=== PATIENT | male | born 1950 | race Caucasian/White ===

== ENCOUNTER 2017-12-22 11:52 | Inpatient (IN) | payer OTHER ==
[2017-12-22] VITALS (32 sets, daily range): BP systolic 78–164; BP diastolic 38–89
[~2017-12-22] VITALS: Ht 177.8 cm; Wt 126.0 kg
[2017-12-22] MEDS ORDERED: MORPHINE SULF INJ 2 MG/ML SYRINGE 1ML IV ONE (12:00)
[2017-12-22] MEDS ORDERED: HEPARIN SODIUM (PORCINE) 5000 UNITS/ML 1ML VIAL ONE (12:00)
[2017-12-22] MEDS ORDERED: HEPARIN SODIUM (PORCINE) 5000 UNITS/ML 1ML VIAL IV ONE ×2 (12:15→13:00)
[2017-12-22] MEDS ORDERED: LIDOCAINE 2%HCL (LOCAL ANESTH.) INJ 20ML MDV ONE (12:21)
[2017-12-22] MEDS ORDERED: IOHEXOL 350 MG/ML 100ML IJ ONE (12:21)
[2017-12-22] MEDS ORDERED: LABETALOL HCL 5 MG/ML ML 20ML VIAL IV ONE ×2 (12:24→12:30)
[2017-12-22 12:37] LABS: Basophils # (auto) 0.1 uL; Basophils % (auto) 0.8 % (0.0-2.0); Eosinophils # (auto) 0.2 uL; Eosinophils % (auto) 2.1 % (0.0-7.0); Hematocrit 45.6 % (41.0-53.0); Hemoglobin 15.5 g/dL (13.5-17.5); Lymphocytes # (auto) 1.6 uL; Lymphocytes % (auto) 17.4 % (10.0-50.0); Mean Corpuscular Hemoglobin 32.4 pg (28.0-32.0); Mean Corpuscular Hgb Conc. 34.1 g/dL (32.0-36.0); Mean Corpuscular Volume 95.3 fL (80.0-100.0); Monocytes # (auto) 0.6 uL; Monocytes % (auto) 6.7 % (0.0-12.0); Neutrophils # (auto) 6.6 uL; Platelet Count (auto) 213 10^3/uL (140-450); Red Blood Cells 4.78 10^6/uL (4.5-5.90); Red Cell Distribution Width 13.5 % (11.8-14.3)
[2017-12-22] MEDS ORDERED: fentaNYL CITRATE 100 MCG/2 ML VL ONE (12:39)
[2017-12-22] MEDS ORDERED: SODIUM CHL 0.9% 50 ML ONE (12:39)
[2017-12-22] MEDS ORDERED: MIDAZOLAM HCL 1MG/1ML-2 ML VIAL ONE (12:39)
[2017-12-22] MEDS ORDERED: ANGIOMAX 250 MG VIAL IV ONE (12:39)
[2017-12-22] MEDS ORDERED: EPTIFIBATIDE INJ (2MG/ML) 10ML VIAL IV ONE (12:40)
[2017-12-22 12:42] LABS: INR 1.07 (0.9-1.15); Partial Thromboplastin Time 52.7 sec (23.78-33.04); Prothrombin Time 11.4 sec (9.27-12.13)
[2017-12-22 12:47] LABS: Albumin 3.9 g/dL (3.4-5.0); BUN/Creatinine Ratio 13.4; Magnesium 1.6 mg/dL (1.6-2.6); Potassium 3.9 mmol/L (3.5-5.1)
[2017-12-22 12:53] LABS: Bilirubin, Total 0.7 mg/dL (0.2-1.0); Total Protein 7.8 g/dL (6.4-8.2)
[2017-12-22] MEDS ORDERED: HEPARIN DRIP/D5W 100UNITS/ML 250 ML IV SCH ×2 (12:56→13:15)
[2017-12-22] MEDS ORDERED: SODIUM CHLORIDE 0.9% 1,000 ML IV SCH (13:29)
[2017-12-22] MEDS ORDERED: DEXTROSE (50%) 50ML SYRG IV PRN (13:30)
[2017-12-22] MEDS ORDERED: NITROGLYCERIN 0.4 MG SL TAB SL PRN (13:30)
[2017-12-22] MEDS ORDERED: MORPHINE SULFATE 8mg/ml INJ SDV IV PRN ×2 (13:30→14:45)
[2017-12-22] MEDS: HEPARIN DRIP/D5W 100UNITS/ML 250 ML IV SCH (14:00)
[2017-12-22] MEDS: SODIUM CHLOR 0.9% PF (SALINE LOCK) 10ML VIAL/SYR IV SCH ×2 (14:00→22:28)
[2017-12-22] MEDS ORDERED: ZOLPIDEM TARTRATE 5 MG TAB PO PRN (14:45)
[2017-12-22] MEDS ORDERED: HYDROcodone-ACET 5/325MG TAB PO PRN (14:45)
[2017-12-22] MEDS ORDERED: LORazepam 0.5 MG TAB PO PRN (14:45)
[2017-12-22] MEDS ORDERED: ACETAMINOPHEN 500 MG TAB PO PRN (14:45)
[2017-12-22] MEDS ORDERED: ONDANSETRON HCL 4 MG/2 ML VIAL IV PRN (14:45)
[2017-12-22] MEDS: NITROGLYCERIN 50MG/250ML 250 ML IV SCH (16:00)
[2017-12-22] MEDS ORDERED: NITROGLYCERIN 50MG/250ML 250 ML IV ONE (16:14)
[2017-12-22 16:56] LABS: Albumin 3.7 g/dL (3.4-5.0); Bilirubin, Total 0.5 mg/dL (0.2-1.0); Potassium 4.2 mmol/L (3.5-5.1); Total Protein 7.3 g/dL (6.4-8.2)
[2017-12-22] MEDS: ACCU-CHEK COMFORT CURVE STRIP VI SCH ×2 (17:00→22:28)
[2017-12-22] MEDS: InsuLIN REG 1unit/0.01ml Soln (100units/ml) SC SCH ×2 (17:00→22:00)
[2017-12-22 17:04] LABS: Basophils # (auto) 0.1 uL; Basophils % (auto) 0.9 % (0.0-2.0); Eosinophils # (auto) 0.1 uL; Eosinophils % (auto) 1.6 % (0.0-7.0); Hematocrit 44.8 % (41.0-53.0); Hemoglobin 15.1 g/dL (13.5-17.5); Lymphocytes # (auto) 2.1 uL; Lymphocytes % (auto) 22.7 % (10.0-50.0); Mean Corpuscular Hemoglobin 32.6 pg (28.0-32.0); Mean Corpuscular Hgb Conc. 33.8 g/dL (32.0-36.0); Mean Corpuscular Volume 96.4 fL (80.0-100.0); Monocytes # (auto) 0.6 uL; Monocytes % (auto) 6.5 % (0.0-12.0); Neutrophils # (auto) 6.3 uL; Neutrophils % (auto) 68.3 % (37.0-80.0); Platelet Count (auto) 191 10^3/uL (140-450); Red Blood Cells 4.64 10^6/uL (4.5-5.90); Red Cell Distribution Width 13.6 % (11.8-14.3); White Blood Cell 9.2 10^3/uL (4.4-10.8)
[2017-12-22] MEDS ORDERED: METOPROLOL TARTRATE 25 MG TAB PO SCH (22:00)
[2017-12-22] MEDS ORDERED: ATORVASTATIN 20 MG TAB PO SCH (22:00)
[2017-12-23] VITALS (44 sets, daily range): BP systolic 120–154; BP diastolic 36–112
[2017-12-23 04:27] LABS: Basophils # (auto) 0 uL; Basophils % (auto) 0.5 % (0.0-2.0); Eosinophils # (auto) 0.1 uL; Eosinophils % (auto) 0.6 % (0.0-7.0); Hematocrit 41.6 % (41.0-53.0); Hemoglobin 14.2 g/dL (13.5-17.5); Lymphocytes # (auto) 1.4 uL; Lymphocytes % (auto) 13.7 % (10.0-50.0); Mean Corpuscular Hemoglobin 32.7 pg (28.0-32.0); Mean Corpuscular Hgb Conc. 34.2 g/dL (32.0-36.0); Mean Corpuscular Volume 95.5 fL (80.0-100.0); Monocytes # (auto) 0.7 uL; Monocytes % (auto) 7.3 % (0.0-12.0); Neutrophils # (auto) 7.8 uL; Neutrophils % (auto) 77.9 % (37.0-80.0); Platelet Count (auto) 163 10^3/uL (140-450); Red Blood Cells 4.36 10^6/uL (4.5-5.90); Red Cell Distribution Width 13.6 % (11.8-14.3)
[2017-12-23 04:30] LABS: INR 1.04 (0.9-1.15); Partial Thromboplastin Time 29.3 sec (23.78-33.04); Prothrombin Time 11.1 sec (9.27-12.13)
[2017-12-23 04:41] LABS: Albumin 3.4 g/dL (3.4-5.0); BUN/Creatinine Ratio 16.8; Bilirubin, Total 0.6 mg/dL (0.2-1.0); Calcium 8.3 mg/dL (8.5-10.1); Potassium 3.7 mmol/L (3.5-5.1); Total Protein 6.8 g/dL (6.4-8.2)
[2017-12-23] MEDS: SODIUM CHLOR 0.9% PF (SALINE LOCK) 10ML VIAL/SYR IV SCH ×3 (06:10→22:00)
[2017-12-23] MEDS: ACCU-CHEK COMFORT CURVE STRIP VI SCH ×4 (06:11→21:47)
[2017-12-23] MEDS: InsuLIN REG 1unit/0.01ml Soln (100units/ml) SC SCH ×4 (06:11→21:48)
[2017-12-23] MEDS ORDERED: DOXA1TAB41 PO (08:20)
[2017-12-23] MEDS ORDERED: OME20T PO (08:20)
[2017-12-23] MEDS ORDERED: ZOLP10TA PO (08:20)
[2017-12-23] MEDS ORDERED: LOSA100T27 PO (08:20)
[2017-12-23] MEDS ORDERED: PROP60CA8 PO (08:20)
[2017-12-23] MEDS ORDERED: METF-929 PO (08:20)
[2017-12-23] MEDS ORDERED: ASPirin 81 mg TAB PO SCH (10:00)
[2017-12-23] MEDS ORDERED: METOPROLOL SUCCINATE XL 50 MG TAB PO SCH (10:00)
[2017-12-23] MEDS ORDERED: ASPirin 325 MG TAB PO SCH (10:00)
[2017-12-23] MEDS ORDERED: VANCOMYCIN 1GM/250ML 250 ML IV ONE (11:15)
[2017-12-23] MEDS ORDERED: ASPirin 81 mg TAB ONE (17:38)
[2017-12-23] MEDS: HEPARIN DRIP/D5W 100UNITS/ML 250 ML IV SCH (17:40)
[2017-12-23] MEDS: NITROGLYCERIN 50MG/250ML 250 ML IV SCH (18:15)
[2017-12-23] MEDS ORDERED: ASCORBIC ACID 500 MG TAB ONE (21:24)
[2017-12-23] MEDS ORDERED: ASCORBIC ACID 500 MG TAB PO ONE (22:00)
[2017-12-24] VITALS (44 sets, daily range): BP systolic 15–156; BP diastolic 1–113
[2017-12-24 04:02] LABS: Basophils # (auto) 0 uL; Basophils % (auto) 0.5 % (0.0-2.0); Eosinophils # (auto) 0.2 uL; Eosinophils % (auto) 2.5 % (0.0-7.0); Hematocrit 41.5 % (41.0-53.0); Mean Corpuscular Hemoglobin 32.1 pg (28.0-32.0); Mean Corpuscular Hgb Conc. 33.8 g/dL (32.0-36.0); Monocytes # (auto) 0.8 uL; Monocytes % (auto) 9.6 % (0.0-12.0); Neutrophils # (auto) 5.4 uL; Neutrophils % (auto) 63.4 % (37.0-80.0); Nucleated Red Blood Cells % 0.1 %; Platelet Count (auto) 151 10^3/uL (140-450); Red Blood Cells 4.37 10^6/uL (4.5-5.90); Red Cell Distribution Width 13.5 % (11.8-14.3); White Blood Cell 8.4 10^3/uL (4.4-10.8)
[2017-12-24 04:18] LABS: Partial Thromboplastin Time 33.5 sec (23.78-33.04); Prothrombin Time 10.7 sec (9.27-12.13)
[2017-12-24 04:19] LABS: BUN/Creatinine Ratio 14.6; Calcium 8.5 mg/dL (8.5-10.1); Potassium 3.6 mmol/L (3.5-5.1)
[2017-12-24] MEDS ORDERED: CHLORHEXIDINE 4% TOPICAL soln 4or8OZ TOP ONE (06:00)
[2017-12-24] MEDS: SODIUM CHLOR 0.9% PF (SALINE LOCK) 10ML VIAL/SYR IV SCH (06:00)
[2017-12-24] MEDS: InsuLIN REG 1unit/0.01ml Soln (100units/ml) SC SCH (06:49)
[2017-12-24] MEDS: ACCU-CHEK COMFORT CURVE STRIP VI SCH ×6 (06:49→23:00)
[2017-12-24] MEDS ORDERED: CHLORHEXIDINE 0.12% ORAL rinse 473ML MT ONE (08:00)
[2017-12-24] MEDS ORDERED: AMIODARONE HCL 200 MG TAB PO ONE (09:00)
[2017-12-24 09:43] LABS: Urine Bacteria FEW /hpf (None Seen); Urine Blood 2+ /uL (Negative); Urine Mucus FEW (None Seen); Urine Specific Gravity 1.021 (1.001-1.035); Urine WBC 1 /hpf (0 - 3)
[2017-12-24] MEDS ORDERED: ASPirin 81 mg TAB PO SCH (10:00)
[2017-12-24] MEDS ORDERED: ALBUMIN 25% 300 ML IV ONE (11:09)
[2017-12-24] MEDS ORDERED: fentaNYL CITRATE 10 ML ONE (11:52)
[2017-12-24] MEDS ORDERED: MIDAZOLAM HCL 1MG/1ML-2 ML VIAL ONE ×2 (11:52→11:53)
[2017-12-24] MEDS ORDERED: ROCURONIUM 10MG/ML 10ML VIAL IV ONE ×2 (11:53→18:01)
[2017-12-24] MEDS ORDERED: PHENYLEPHRINE HCL 10 MG/ML VL ONE (11:53)
[2017-12-24] MEDS ORDERED: ACCU-CHEK COMFORT CURVE STRIP VI ONE (12:00)
[2017-12-24] MEDS ORDERED: PHENYLEPHRINE INJ 20 MG in SODIUM CHL 0.9% 250 ML IV ONE (12:00)
[2017-12-24] MEDS ORDERED: InsuLIN R (HUMAN) 100 UNITS in SODIUM CHL 0.9% 99 ML IV ONE (12:00)
[2017-12-24] MEDS ORDERED: TRANEXAMIC ACID 1,000 mg/10ml INJ VIAL IV ONE (12:00)
[2017-12-24] MEDS ORDERED: LIDOCAINE 2% (LOCAL ANESTH.) PF 5ml SDV ONE (12:00)
[2017-12-24] MEDS ORDERED: EPINEPHrine HCL 4 MG in D5W 5% 250 ML IV ONE (12:00)
[2017-12-24] MEDS ORDERED: cefTRIAXone 1GM/10ml IVPUSH 10 ML IV ONE (12:00)
[2017-12-24] MEDS ORDERED: HEPARIN 30000 UNITS in SODIUM CHLORIDE 0.9% 1000 ML IV ONE (12:00)
[2017-12-24] MEDS ORDERED: TRANEXAMIC ACID 1,000 MG in SODIUM CHL 0.9% 100 ML IV ONE (12:00)
[2017-12-24] MEDS ORDERED: VASOPRESSIN 50 UNITS in SODIUM CHL 0.9% 247.5 ML IV ONE (12:00)
[2017-12-24] MEDS ORDERED: NOREPINEPHRINE 8 MG/250ML KIT 250 ML IV ONE (12:00)
[2017-12-24] MEDS ORDERED: PROPOFOL 10 MG/ML 20 ML IV ONE (12:11)
[2017-12-24] MEDS ORDERED: NEOMYCIN-BACITRACIN-POLYM 15GM TOP OINT TOP ONE (12:12)
[2017-12-24] MEDS ORDERED: BACITRACIN TOP OINT 1 UD PKG TOP ONE (12:12)
[2017-12-24] MEDS ORDERED: HEPARIN 1,000 UNITS/ml 1ML VIAL ONE (12:12)
[2017-12-24] MEDS ORDERED: PAPAVERINE HCL 60 MG/2 ML 2ML VIAL ONE (12:12)
[2017-12-24] MEDS ORDERED: BACITRACIN INJ 50000 UNIT VIAL ONE (12:13)
[2017-12-24] MEDS: DEXMEDETOMIDINE HCL 400 MCG in D5W 5% 96 ML IV SCH (12:17)
[2017-12-24] MEDS: PROPOFOL 100 ML IV SCH (12:17)
[2017-12-24] MEDS: SODIUM CHLORIDE 0.9% 500 ML IV SCH (12:17)
[2017-12-24] MEDS: NOREPINEPHRINE 8 MG/250ML KIT 250 ML IV SCH (12:17)
[2017-12-24] MEDS ORDERED: NITROGLYCERIN 50MG/250ML 250 ML IV SCH (12:17)
[2017-12-24] MEDS: SODIUM CHLORIDE 0.9% 1,000 ML IV SCH ×2 (12:17→22:17)
[2017-12-24] MEDS ORDERED: METOCLOPRAMIDE HCL 5MG/ml INJ 2ml VIAL IV PRN (12:30)
[2017-12-24] MEDS ORDERED: PROPRANOLOL HCL 1 MG/ML VIAL IV PRN (12:30)
[2017-12-24] MEDS ORDERED: AMIODARONE HCL 150 MG in D5W 5% 100 ML IV ONE (12:30)
[2017-12-24] MEDS ORDERED: AMIODARONE HCL 900 MG in DEXTROSE 500 ML IV SCH (12:30)
[2017-12-24] MEDS ORDERED: MAGNESIUM SULFATE 1GM/100ML 100 ML IV PRN (12:30)
[2017-12-24] MEDS ORDERED: MORPHINE SULFATE 8mg/ml INJ SDV IV PRN ×3 (12:30)
[2017-12-24] MEDS ORDERED: FUROSEMIDE 20 MG/2 ML VIAL IV PRN (12:30)
[2017-12-24] MEDS ORDERED: ONDANSETRON HCL 4 MG/2 ML VIAL IV PRN (12:30)
[2017-12-24] MEDS ORDERED: SODIUM BICARBONATE 8.4% INJ 50ML SYRINGE IV PRN (12:30)
[2017-12-24] MEDS ORDERED: INSULIN DRIP 100 UNIT/100ML 100 ML IV SCH (12:34)
[2017-12-24] MEDS ORDERED: DEXTROSE (50%) 50ML SYRG IV PRN (12:45)
[2017-12-24] MEDS: ACETYLCYSTEINE 10 %(100MG/ML) SOL 4ML NEB SCH ×2 (14:00→22:00)
[2017-12-24] MEDS: IPRATROPIUM BROM 0.5 MG/2.5ML INH SOL NEB SCH ×3 (14:00→22:00)
[2017-12-24] MEDS: NICARDIPINE 25MG/250ML BAG KIT 250 ML IV SCH ×5 (17:17→23:45)
[2017-12-24] MEDS ORDERED: PROPOFOL 100 ML IV ONE (17:31)
[2017-12-24] MEDS ORDERED: fentaNYL CITRATE 100 MCG/2 ML VL ONE (18:02)
[2017-12-24] MEDS: AMIODARONE HCL 900 MG in DEXTROSE 500 ML IV SCH (18:30)
[2017-12-24] MEDS ORDERED: DILTIAZEM 125mg/125ml BAG KIT 125 ML IV SCH (18:30)
[2017-12-24] MEDS: ALBUMIN 5% 250 ML IV PRN ×2 (20:30→23:00)
[2017-12-24 21:00] LABS: Basophils # (auto) 0 uL; Basophils % (auto) 0.2 % (0.0-2.0); Eosinophils # (auto) 0 uL; Eosinophils % (auto) 0.1 % (0.0-7.0); Hematocrit 32.2 % (41.0-53.0); Hemoglobin 10.9 g/dL (13.5-17.5); Lymphocytes # (auto) 1.2 uL; Lymphocytes % (auto) 6.2 % (10.0-50.0); Mean Corpuscular Hemoglobin 32.5 pg (28.0-32.0); Mean Corpuscular Volume 95.5 fL (80.0-100.0); Monocytes # (auto) 1.5 uL; Monocytes % (auto) 8.1 % (0.0-12.0); Neutrophils # (auto) 15.9 uL; Neutrophils % (auto) 85.4 % (37.0-80.0); Nucleated Red Blood Cells % 0.1 %; Red Blood Cells 3.37 10^6/uL (4.5-5.90); Red Cell Distribution Width 13.6 % (11.8-14.3); White Blood Cell 18.6 10^3/uL (4.4-10.8)
[2017-12-24 21:06] LABS: Platelet Count (auto) 123 10^3/uL (140-450)
[2017-12-24 21:38] LABS: INR 1.07 (0.9-1.15); Partial Thromboplastin Time 27.6 sec (23.78-33.04); Prothrombin Time 11.4 sec (9.27-12.13)
[2017-12-24 21:45] LABS: BUN/Creatinine Ratio 10.1; Calcium 7.6 mg/dL (8.5-10.1); Magnesium 3.6 mg/dL (1.6-2.6); Phosphorus 1.1 mg/dL (2.5-4.90); Potassium 4.7 mmol/L (3.5-5.1)
[2017-12-24] MEDS: cefTRIAXone 1GM/10ml IVPUSH 10 ML IV SCH (22:31)
[2017-12-24] MEDS: CHLORHEXIDINE 0.12% ORAL rinse 473ML MT SCH (22:32)
[2017-12-25] VITALS (104 sets, daily range): BP systolic 26–247; BP diastolic 13–238
[2017-12-25] MEDS: VANCOMYCIN 1GM/250ML 250 ML IV SCH ×2 (00:30→12:12)
[2017-12-25] MEDS: ACCU-CHEK COMFORT CURVE STRIP VI SCH ×18 (01:13→23:00)
[2017-12-25] MEDS: IPRATROPIUM BROM 0.5 MG/2.5ML INH SOL NEB SCH (01:18)
[2017-12-25] MEDS ORDERED: InsuLIN REG 1unit/0.01ml Soln (100units/ml) ONE (03:08)
[2017-12-25] MEDS: PROPOFOL 100 ML IV SCH ×4 (03:15→21:30)
[2017-12-25] MEDS: NICARDIPINE 25MG/250ML BAG KIT 250 ML IV SCH ×8 (03:17→23:17)
[2017-12-25] MEDS: CALCIUM GLUC 4.65meq/50ml D5AE 50 ML IV PRN ×2 (03:26→17:23)
[2017-12-25 03:42] LABS: Basophils # (auto) 0 uL; Basophils % (auto) 0.2 % (0.0-2.0); Eosinophils # (auto) 0 uL; Hematocrit 28.6 % (41.0-53.0); Hemoglobin 9.8 g/dL (13.5-17.5); Lymphocytes # (auto) 0.8 uL; Lymphocytes % (auto) 5.7 % (10.0-50.0); Mean Corpuscular Hemoglobin 32.6 pg (28.0-32.0); Mean Corpuscular Hgb Conc. 34.3 g/dL (32.0-36.0); Mean Corpuscular Volume 95.2 fL (80.0-100.0); Monocytes # (auto) 0.8 uL; Monocytes % (auto) 5.3 % (0.0-12.0); Neutrophils % (auto) 88.8 % (37.0-80.0); Platelet Count (auto) 115 10^3/uL (140-450); Red Cell Distribution Width 13.4 % (11.8-14.3); White Blood Cell 14.6 10^3/uL (4.4-10.8)
[2017-12-25 04:11] LABS: BUN/Creatinine Ratio 11.6; Calcium 7.9 mg/dL (8.5-10.1); Magnesium 3.4 mg/dL (1.6-2.6); Phosphorus 1.5 mg/dL (2.5-4.90); Potassium 3.4 mmol/L (3.5-5.1)
[2017-12-25] MEDS: POTASSIUM CHL 20MEQ/100ML 100 ML IV PRN ×4 (04:30→17:54)
[2017-12-25] MEDS ORDERED: SODIUM PHOSPHATES 20 MEQ in SODIUM CHL 0.9% 100 ML IV ONE (07:45)
[2017-12-25] MEDS: DOPamine 1600MCG/ML D5W 250 ML IV SCH (08:00)
[2017-12-25] MEDS: SODIUM CHLORIDE 0.9% 1,000 ML IV SCH ×2 (09:07→18:36)
[2017-12-25] MEDS: PANTOPRAZOLE 40 MG/10 ML VIAL IV SCH (09:42)
[2017-12-25] MEDS: DEXMEDETOMIDINE HCL 400 MCG in D5W 5% 96 ML IV SCH ×2 (09:42→23:19)
[2017-12-25] MEDS: cefTRIAXone 1GM/10ml IVPUSH 10 ML IV SCH ×2 (09:42→21:30)
[2017-12-25] MEDS: CHLORHEXIDINE 0.12% ORAL rinse 473ML MT SCH ×2 (10:00→21:44)
[2017-12-25] MEDS ORDERED: ALBUMIN 25% 50 ML IV ONE (11:29)
[2017-12-25] MEDS ORDERED: FUROSEMIDE 20 MG/2 ML VIAL IV ONE (11:38)
[2017-12-25] MEDS ORDERED: DEXAMETHASONE SODIUM PHOSP 120 MG/30ml VIAL IV ONE (11:38)
[2017-12-25] MEDS ORDERED: SODIUM BICARBONATE 8.4 % INJ 50ML VIAL IV ONE (11:38)
[2017-12-25] MEDS ORDERED: MAGNESIUM SULF 50% 40 MEQ/10 ML VL IV ONE (11:38)
[2017-12-25] MEDS ORDERED: MANNITOL 20 % (20GM/100ML) SOLN 500ML IV ONE (11:38)
[2017-12-25] MEDS ORDERED: ADENOSINE 6 MG/2 ML INJ IV ONE (11:38)
[2017-12-25] MEDS ORDERED: CALCIUM CHLOR(10%) 100MG/ML 10ML SYRINGE IV ONE (11:38)
[2017-12-25] MEDS ORDERED: POTASSIUM CHL 20 MEQ/100 ML IV ONE (11:38)
[2017-12-25] MEDS ORDERED: ALBUMIN 25% IV ONE (11:38)
[2017-12-25] MEDS ORDERED: HEPARIN SODIUM (PORCINE) 5000 UNITS/ML 1ML VIAL SC ONE (11:38)
[2017-12-25] MEDS ORDERED: PHENYLEPHRINE HCL 10 MG/ML VL IV ONE (11:38)
[2017-12-25] MEDS ORDERED: LIDOCAINE HCL 100 MG/5ML (2%) SYRG INJ IV ONE (11:38)
[2017-12-25] MEDS: ALBUMIN 25% 250 ML IV PRN ×2 (12:00→14:34)
[2017-12-25] MEDS: SODIUM CHLORIDE 0.9% 500 ML IV SCH (12:17)
[2017-12-25] MEDS: NOREPINEPHRINE 8 MG/250ML KIT 250 ML IV SCH (12:24)
[2017-12-25] MEDS ORDERED: MORPHINE SULFATE 4 MG/ML SYR/VIAL ONE (13:01)
[2017-12-25] MEDS ORDERED: ALBUMIN 25% 100 ML IV ONE (14:22)
[2017-12-25 14:57] LABS: Basophils # (auto) 0 uL; Basophils % (auto) 0.1 % (0.0-2.0); Eosinophils # (auto) 0 uL; Hematocrit 26.2 % (41.0-53.0); Lymphocytes # (auto) 1.3 uL; Mean Corpuscular Hemoglobin 32.8 pg (28.0-32.0); Mean Corpuscular Hgb Conc. 34.2 g/dL (32.0-36.0); Mean Corpuscular Volume 95.9 fL (80.0-100.0); Monocytes # (auto) 1.8 uL; Monocytes % (auto) 8.4 % (0.0-12.0); Neutrophils # (auto) 18.5 uL; Neutrophils % (auto) 85.5 % (37.0-80.0); Platelet Count (auto) 108 10^3/uL (140-450); Red Blood Cells 2.73 10^6/uL (4.5-5.90); Red Cell Distribution Width 13.6 % (11.8-14.3); White Blood Cell 21.6 10^3/uL (4.4-10.8)
[2017-12-25 15:12] LABS: Calcium 7.6 mg/dL (8.5-10.1); Magnesium 2.9 mg/dL (1.6-2.6); Potassium 3.9 mmol/L (3.5-5.1)
[2017-12-25] MEDS ORDERED: INSULIN DRIP 100 UNIT/100ML 100 ML IV SCH (16:20)
[2017-12-25] MEDS: AMIODARONE HCL 900 MG in DEXTROSE 500 ML IV SCH (18:30)
[2017-12-25 20:48] LABS: Potassium 4.1 mmol/L (3.5-5.1)
[2017-12-25 20:51] LABS: Magnesium 2.6 mg/dL (1.6-2.6)
[2017-12-25 22:37] LABS: Hemoglobin 8.4 g/dL (13.5-17.5)
[2017-12-25 22:38] LABS: Hematocrit 24.5 % (41.0-53.0)
[2017-12-25 22:47] LABS: Calcium 7.9 mg/dL (8.5-10.1)
[2017-12-25 22:56] LABS: Phosphorus 3.3 mg/dL (2.5-4.90)
[2017-12-25] MEDS: fentaNYL CITRATE 100 MCG/2 ML VL IV PRN (23:20)
[2017-12-26] VITALS (107 sets, daily range): BP systolic 27–143; BP diastolic 13–74
[2017-12-26] MEDS: ALBUMIN 25% 250 ML IV PRN (00:21)
[2017-12-26] MEDS: ACCU-CHEK COMFORT CURVE STRIP VI SCH ×23 (00:22→23:00)
[2017-12-26] MEDS: VANCOMYCIN 1GM/250ML 250 ML IV SCH (00:37)
[2017-12-26] MEDS: DOPamine 1600MCG/ML D5W 250 ML IV SCH ×3 (01:00→19:00)
[2017-12-26 04:16] LABS: Basophils # (auto) 0 uL; Eosinophils # (auto) 0 uL; Hematocrit 22.6 % (41.0-53.0); Hemoglobin 7.7 g/dL (13.5-17.5); Lymphocytes # (auto) 1.1 uL; Mean Corpuscular Hemoglobin 32.9 pg (28.0-32.0); Mean Corpuscular Hgb Conc. 34.1 g/dL (32.0-36.0); Mean Corpuscular Volume 96.4 fL (80.0-100.0); Monocytes # (auto) 2.1 uL; Monocytes % (auto) 11.4 % (0.0-12.0); Neutrophils # (auto) 15.1 uL; Neutrophils % (auto) 82.6 % (37.0-80.0); Platelet Count (auto) 96 10^3/uL (140-450); Red Blood Cells 2.34 10^6/uL (4.5-5.90); Red Cell Distribution Width 13.7 % (11.8-14.3); White Blood Cell 18.2 10^3/uL (4.4-10.8)
[2017-12-26] MEDS: NICARDIPINE 25MG/250ML BAG KIT 250 ML IV SCH ×4 (04:17→19:17)
[2017-12-26 04:34] LABS: Albumin 3.5 g/dL (3.4-5.0); BUN/Creatinine Ratio 16.1; Bilirubin, Total 0.4 mg/dL (0.2-1.0); Calcium 7.5 mg/dL (8.5-10.1); Magnesium 3.1 mg/dL (1.6-2.6); Phosphorus 3.5 mg/dL (2.5-4.90); Potassium 4.2 mmol/L (3.5-5.1); Total Protein 5.9 g/dL (6.4-8.2)
[2017-12-26] MEDS: SODIUM CHLORIDE 0.9% 1,000 ML IV SCH ×2 (04:41→15:00)
[2017-12-26] MEDS: PROPOFOL 100 ML IV SCH ×3 (05:05→22:25)
[2017-12-26] MEDS: CALCIUM GLUC 4.65meq/50ml D5AE 50 ML IV PRN (05:18)
[2017-12-26] MEDS: fentaNYL CITRATE 100 MCG/2 ML VL IV PRN ×3 (05:40→21:15)
[2017-12-26] MEDS: IPRATROPIUM BROM 0.5 MG/2.5ML INH SOL NEB SCH ×5 (06:10→22:23)
[2017-12-26] MEDS: ACETYLCYSTEINE 10 %(100MG/ML) SOL 4ML NEB SCH ×4 (06:10→22:23)
[2017-12-26] MEDS: cefTRIAXone 1GM/10ml IVPUSH 10 ML IV SCH (09:22)
[2017-12-26] MEDS: PANTOPRAZOLE 40 MG/10 ML VIAL IV SCH (09:22)
[2017-12-26] MEDS ORDERED: FUROSEMIDE 40 MG/4 ML VIAL IV ONE (09:45)
[2017-12-26] MEDS: CHLORHEXIDINE 0.12% ORAL rinse 473ML MT SCH ×2 (10:20→22:30)
[2017-12-26] MEDS: SODIUM CHLORIDE 0.9% 500 ML IV SCH (12:17)
[2017-12-26] MEDS: NOREPINEPHRINE 8 MG/250ML KIT 250 ML IV SCH (12:17)
[2017-12-26] MEDS: DEXMEDETOMIDINE HCL 400 MCG in D5W 5% 96 ML IV SCH (16:50)
[2017-12-26 17:06] LABS: Calcium 7.3 mg/dL (8.5-10.1); Magnesium 2.7 mg/dL (1.6-2.6); Phosphorus 3.9 mg/dL (2.5-4.90); Potassium 4.2 mmol/L (3.5-5.1)
[2017-12-26] MEDS ORDERED: INSULIN DRIP 100 UNIT/100ML 100 ML IV SCH (17:20)
[2017-12-26] MEDS ORDERED: DEXTROSE (50%) 50ML SYRG IV PRN (17:30)
[2017-12-26] MEDS: AMIODARONE HCL 900 MG in DEXTROSE 500 ML IV SCH (18:30)
[2017-12-26] MEDS ORDERED: ACETAMINOPHEN 650 mg PER 20 mL UD GT PRN (18:45)
[2017-12-26] MEDS ORDERED: MAGNESIUM SULFATE 1GM/100ML 100 ML IV PRN (19:30)
[2017-12-26] MEDS ORDERED: cefTRIAXone 1GM/10ml IVPUSH 10 ML IV ONE (21:45)
[2017-12-26 22:41] LABS: Hematocrit 23.8 % (41.0-53.0); Hemoglobin 8.1 g/dL (13.5-17.5)
[2017-12-26 22:55] LABS: Magnesium 2.6 mg/dL (1.6-2.6)
[2017-12-26] MEDS: POTASSIUM CHL 20MEQ/100ML 100 ML IV PRN (23:15)
[2017-12-27] VITALS (107 sets, daily range): BP systolic 23–229; BP diastolic 10–79
[2017-12-27] MEDS: POTASSIUM CHL 20MEQ/100ML 100 ML IV PRN ×5 (00:17→20:59)
[2017-12-27] MEDS: NICARDIPINE 25MG/250ML BAG KIT 250 ML IV SCH ×5 (00:17→20:17)
[2017-12-27] MEDS: SODIUM CHLORIDE 0.9% 1,000 ML IV SCH ×2 (00:17→11:18)
[2017-12-27] MEDS: ACCU-CHEK COMFORT CURVE STRIP VI SCH ×18 (01:00→17:27)
[2017-12-27] MEDS: IPRATROPIUM BROM 0.5 MG/2.5ML INH SOL NEB SCH ×6 (02:19→22:13)
[2017-12-27 04:01] LABS: Basophils # (auto) 0 uL; Eosinophils # (auto) 0 uL; Hemoglobin 8.2 g/dL (13.5-17.5); Red Blood Cells 2.61 10^6/uL (4.5-5.90)
[2017-12-27 04:02] LABS: Basophils % (auto) 0.2 % (0.0-2.0); Hematocrit 24.2 % (41.0-53.0); Lymphocytes # (auto) 1.3 uL; Lymphocytes % (auto) 9.6 % (10.0-50.0); Mean Corpuscular Hemoglobin 31.5 pg (28.0-32.0); Mean Corpuscular Volume 92.6 fL (80.0-100.0); Monocytes # (auto) 1.5 uL; Monocytes % (auto) 11.3 % (0.0-12.0); Neutrophils # (auto) 10.6 uL; Neutrophils % (auto) 78.9 % (37.0-80.0); Nucleated Red Blood Cells % 0.1 %; Platelet Count (auto) 95 10^3/uL (140-450); Red Cell Distribution Width 15.4 % (11.8-14.3); White Blood Cell 13.4 10^3/uL (4.4-10.8)
[2017-12-27 04:31] LABS: BUN/Creatinine Ratio 22.7; Bilirubin, Total 0.5 mg/dL (0.2-1.0); Calcium 7.4 mg/dL (8.5-10.1); Magnesium 2.8 mg/dL (1.6-2.6); Potassium 4.4 mmol/L (3.5-5.1); Total Protein 5.6 g/dL (6.4-8.2)
[2017-12-27] MEDS: PROPOFOL 100 ML IV SCH (05:20)
[2017-12-27] MEDS: CALCIUM GLUC 4.65meq/50ml D5AE 50 ML IV PRN (05:25)
[2017-12-27] MEDS: ACETYLCYSTEINE 10 %(100MG/ML) SOL 4ML NEB SCH ×2 (05:39→22:13)
[2017-12-27] MEDS: DOPamine 1600MCG/ML D5W 250 ML IV SCH ×2 (06:27→17:45)
[2017-12-27] MEDS: fentaNYL CITRATE 100 MCG/2 ML VL IV PRN ×3 (10:00→22:22)
[2017-12-27] MEDS: DEXMEDETOMIDINE HCL 400 MCG in D5W 5% 96 ML IV SCH ×3 (10:21→23:24)
[2017-12-27] MEDS: PANTOPRAZOLE 40 MG/10 ML VIAL IV SCH (11:17)
[2017-12-27] MEDS: CHLORHEXIDINE 0.12% ORAL rinse 473ML MT SCH ×2 (11:18→22:24)
[2017-12-27] MEDS ORDERED: MORPHINE SULF INJ 2 MG/ML SYRINGE 1ML IV PRN ×3 (11:45)
[2017-12-27] MEDS: NOREPINEPHRINE 8 MG/250ML KIT 250 ML IV SCH (12:17)
[2017-12-27] MEDS ORDERED: FUROSEMIDE 20 MG/2 ML VIAL ONE (13:22)
[2017-12-27] MEDS: INSULIN DRIP 100 UNIT/100ML 100 ML IV SCH (16:00)
[2017-12-27] MEDS: SODIUM CHLORIDE 0.9% 500 ML IV SCH (18:00)
[2017-12-27 18:17] LABS: Magnesium 2.1 mg/dL (1.6-2.6); Potassium 3.4 mmol/L (3.5-5.1)
[2017-12-27] MEDS: AMIODARONE HCL 900 MG in DEXTROSE 500 ML IV SCH (18:30)
[2017-12-27] MEDS ORDERED: ALBUMIN 5% 250 ML IV ONE (21:16)
[2017-12-27 23:20] LABS: Magnesium 2.4 mg/dL (1.6-2.6); Potassium 4.7 mmol/L (3.5-5.1)
[2017-12-28] VITALS (106 sets, daily range): BP systolic 3–293; BP diastolic 2–240
[2017-12-28] MEDS: NICARDIPINE 25MG/250ML BAG KIT 250 ML IV SCH ×6 (01:17→20:15)
[2017-12-28] MEDS: IPRATROPIUM BROM 0.5 MG/2.5ML INH SOL NEB SCH ×5 (02:15→22:07)
[2017-12-28] MEDS: fentaNYL CITRATE 100 MCG/2 ML VL IV PRN ×4 (02:22→16:53)
[2017-12-28] MEDS: SODIUM CHLORIDE 0.9% 1,000 ML IV SCH ×2 (03:00→16:19)
[2017-12-28] MEDS: DOPamine 1600MCG/ML D5W 250 ML IV SCH (05:03)
[2017-12-28 05:39] LABS: Basophils # (auto) 0 uL; Basophils % (auto) 0.1 % (0.0-2.0); Eosinophils # (auto) 0.1 uL; Eosinophils % (auto) 0.5 % (0.0-7.0); Hematocrit 21.8 % (41.0-53.0); Hemoglobin 7.3 g/dL (13.5-17.5); Lymphocytes # (auto) 1.4 uL; Lymphocytes % (auto) 12.6 % (10.0-50.0); Mean Corpuscular Hemoglobin 31.3 pg (28.0-32.0); Mean Corpuscular Hgb Conc. 33.4 g/dL (32.0-36.0); Mean Corpuscular Volume 93.5 fL (80.0-100.0); Monocytes # (auto) 1.2 uL; Monocytes % (auto) 10.2 % (0.0-12.0); Neutrophils # (auto) 8.7 uL; Neutrophils % (auto) 76.6 % (37.0-80.0); Nucleated Red Blood Cells % 0.2 %; Platelet Count (auto) 113 10^3/uL (140-450); Red Blood Cells 2.33 10^6/uL (4.5-5.90); Red Cell Distribution Width 14.3 % (11.8-14.3); White Blood Cell 11.4 10^3/uL (4.4-10.8)
[2017-12-28 05:57] LABS: Calcium 7.1 mg/dL (8.5-10.1); Magnesium 2.5 mg/dL (1.6-2.6); Potassium 4.3 mmol/L (3.5-5.1)
[2017-12-28 05:59] LABS: BUN/Creatinine Ratio 29.6
[2017-12-28] MEDS: ACETYLCYSTEINE 10 %(100MG/ML) SOL 4ML NEB SCH ×2 (06:30→22:06)
[2017-12-28 06:37] LABS: Phosphorus 2.6 mg/dL (2.5-4.90)
[2017-12-28] MEDS: CALCIUM GLUC 4.65meq/50ml D5AE 50 ML IV PRN ×3 (07:44→13:18)
[2017-12-28] MEDS: DEXMEDETOMIDINE HCL 400 MCG in D5W 5% 96 ML IV SCH (09:15)
[2017-12-28] MEDS: PANTOPRAZOLE 40 MG/10 ML VIAL IV SCH (09:48)
[2017-12-28] MEDS: methylPREDNISolone SOD SUCC 125 MG/2 ML VL IV SCH ×2 (09:48→22:31)
[2017-12-28] MEDS: CHLORHEXIDINE 0.12% ORAL rinse 473ML MT SCH ×2 (09:49→22:00)
[2017-12-28] MEDS ORDERED: methylPREDNISolone SOD SUCC 125 MG/2 ML VL IV SCH (10:00)
[2017-12-28] MEDS ORDERED: DOPamine 3200MCG/ML 250 ML IV SCH ×2 (11:00)
[2017-12-28] MEDS: PROPOFOL 100 ML IV SCH (12:17)
[2017-12-28] MEDS: NOREPINEPHRINE 8 MG/250ML KIT 250 ML IV SCH (12:17)
[2017-12-28] MEDS: SODIUM CHLORIDE 0.9% 500 ML IV SCH (12:18)
[2017-12-28] MEDS: INSULIN DRIP 100 UNIT/100ML 100 ML IV SCH (16:20)
[2017-12-28] MEDS ORDERED: FUROSEMIDE 40 MG/4 ML VIAL IV ONE (17:15)
[2017-12-28 17:28] LABS: Basophils # (auto) 0 uL; Basophils % (auto) 0.1 % (0.0-2.0); Eosinophils # (auto) 0 uL; Hemoglobin 7.8 g/dL (13.5-17.5); Lymphocytes # (auto) 0.9 uL; Mean Corpuscular Hemoglobin 31.3 pg (28.0-32.0); Neutrophils # (auto) 9.9 uL; Neutrophils % (auto) 87.1 % (37.0-80.0); Nucleated Red Blood Cells % 0.1 %; White Blood Cell 11.4 10^3/uL (4.4-10.8)
[2017-12-28 17:30] LABS: Eosinophils % (auto) 0.2 % (0.0-7.0); Hematocrit 23.3 % (41.0-53.0); Lymphocytes % (auto) 7.8 % (10.0-50.0); Mean Corpuscular Hgb Conc. 33.4 g/dL (32.0-36.0); Mean Corpuscular Volume 93.8 fL (80.0-100.0); Monocytes # (auto) 0.5 uL; Monocytes % (auto) 4.8 % (0.0-12.0); Platelet Count (auto) 127 10^3/uL (140-450); Red Blood Cells 2.49 10^6/uL (4.5-5.90); Red Cell Distribution Width 14.4 % (11.8-14.3)
[2017-12-28] MEDS: AMIODARONE HCL 900 MG in DEXTROSE 500 ML IV SCH (18:30)
[2017-12-28] MEDS ORDERED: NITROGLYCERIN 0.4MG/HR TOPICAL PATCH TD ONE (19:45)
[2017-12-28 20:24] LABS: Magnesium 2.3 mg/dL (1.6-2.6)
[2017-12-28] MEDS ORDERED: KETOROLAC TROMETH 30 MG/ML 1ML VIAL ONE (20:40)
[2017-12-28] MEDS ORDERED: KETOROLAC TROMETH 30 MG/ML 1ML VIAL IV PRN (20:45)
[2017-12-28] MEDS ORDERED: INSULIN DRIP 100 UNIT/100ML 100 ML IV SCH (20:53)
[2017-12-28] MEDS: POTASSIUM CHL 20MEQ/100ML 100 ML IV SCH ×2 (21:00→22:30)
[2017-12-28] MEDS ORDERED: DEXTROSE (50%) 50ML SYRG IV PRN (21:00)
[2017-12-28] MEDS: ACCU-CHEK COMFORT CURVE STRIP VI SCH ×3 (21:25→23:00)
[2017-12-29] VITALS (96 sets, daily range): BP systolic 8–167; BP diastolic 8–91
[2017-12-29] MEDS: ACCU-CHEK COMFORT CURVE STRIP VI SCH ×10 (01:00→21:43)
[2017-12-29] MEDS: SODIUM CHLORIDE 0.9% 1,000 ML IV SCH ×3 (02:17→22:17)
[2017-12-29] MEDS: IPRATROPIUM BROM 0.5 MG/2.5ML INH SOL NEB SCH ×6 (02:21→22:04)
[2017-12-29 04:36] LABS: Basophils # (auto) 0 uL; Eosinophils # (auto) 0 uL; Hemoglobin 7.7 g/dL (13.5-17.5); Lymphocytes # (auto) 1.2 uL; Monocytes % (auto) 5.8 % (0.0-12.0); Nucleated Red Blood Cells % 0.1 %; Red Cell Distribution Width 14.1 % (11.8-14.3)
[2017-12-29 04:37] LABS: Basophils % (auto) 0.2 % (0.0-2.0); Hematocrit 22.7 % (41.0-53.0); Lymphocytes % (auto) 7.9 % (10.0-50.0); Mean Corpuscular Hemoglobin 31.8 pg (28.0-32.0); Mean Corpuscular Hgb Conc. 33.9 g/dL (32.0-36.0); Monocytes # (auto) 0.9 uL; Neutrophils # (auto) 12.7 uL; Neutrophils % (auto) 86.1 % (37.0-80.0); Platelet Count (auto) 148 10^3/uL (140-450); Red Blood Cells 2.42 10^6/uL (4.5-5.90); White Blood Cell 14.8 10^3/uL (4.4-10.8)
[2017-12-29 05:05] LABS: BUN/Creatinine Ratio 32.8; Calcium 7.6 mg/dL (8.5-10.1); Magnesium 2.6 mg/dL (1.6-2.6); Phosphorus 3.3 mg/dL (2.5-4.90); Potassium 4.3 mmol/L (3.5-5.1)
[2017-12-29] MEDS: ACETYLCYSTEINE 10 %(100MG/ML) SOL 4ML NEB SCH ×3 (05:53→18:28)
[2017-12-29] MEDS: FUROSEMIDE 40 MG TAB PO SCH ×2 (06:00→18:02)
[2017-12-29] MEDS ORDERED: CALCIUM GLUC 4.65meq/50ml D5AE 50 ML IV ONE (06:42)
[2017-12-29] MEDS: NICARDIPINE 25MG/250ML BAG KIT 250 ML IV SCH ×4 (07:17→22:17)
[2017-12-29] MEDS: fentaNYL CITRATE 100 MCG/2 ML VL IV PRN ×2 (08:53→19:20)
[2017-12-29] MEDS ORDERED: POTASSIUM CHL 10 Meq TABLET PO SCH (10:00)
[2017-12-29] MEDS: methylPREDNISolone SOD SUCC 125 MG/2 ML VL IV SCH ×2 (10:28→21:40)
[2017-12-29] MEDS: CHLORHEXIDINE 0.12% ORAL rinse 473ML MT SCH ×2 (10:28→21:40)
[2017-12-29] MEDS: PANTOPRAZOLE 40 MG/10 ML VIAL IV SCH (10:28)
[2017-12-29] MEDS: NITROGLYCERIN 0.4MG/HR TOPICAL PATCH TD SCH (10:28)
[2017-12-29] MEDS ORDERED: SENNA 8.6 MG TAB PO PRN (11:15)
[2017-12-29] MEDS ORDERED: MILK OF MAGNESIA 30ML SUSP PO PRN (11:15)
[2017-12-29] MEDS ORDERED: HYDROcodone-ACET 5/325MG TAB PO PRN ×2 (11:15→11:30)
[2017-12-29] MEDS ORDERED: MORPHINE SULF INJ 2 MG/ML SYRINGE 1ML IV PRN ×2 (11:30)
[2017-12-29] MEDS: POTASSIUM CHL 10% (20 MEQ/15ML) 15ml ORAL SOLN PO SCH ×2 (12:53→21:28)
[2017-12-29] MEDS ORDERED: cloNIDine HCL 0.1 MG TAB PO PRN (13:15)
[2017-12-29] MEDS ORDERED: DEXTROSE (50%) 50ML SYRG IV PRN (13:15)
[2017-12-29] MEDS: Boost Glucose Control 8 Ounces PO SCH (14:11)
[2017-12-29] MEDS ORDERED: HYDROcodone-ACET 10/325MG TAB PO PRN (14:15)
[2017-12-29] MEDS ORDERED: BENAZEPRIL HCL 10 MG TAB PO ONE (14:30)
[2017-12-29] MEDS: SODIUM CHLORIDE 0.9% 500 ML IV SCH (15:09)
[2017-12-29] MEDS: NOREPINEPHRINE 8 MG/250ML KIT 250 ML IV SCH (15:10)
[2017-12-29] MEDS ORDERED: INSULIN LANTUS (GLARGINE) 1 /0.01ml (100units/ml) SC ONE (15:15)
[2017-12-29] MEDS: InsuLIN REG 1unit/0.01ml Soln (100units/ml) SC SCH ×2 (16:33→21:43)
[2017-12-29] MEDS: AMIODARONE HCL 900 MG in DEXTROSE 500 ML IV SCH (17:47)
[2017-12-29] MEDS: DOCUSATE SOD 100 MG CAP PO SCH (21:25)
[2017-12-29] MEDS: HYDROcodone-ACET 10/325MG TAB PO PRN (21:26)
[2017-12-29] MEDS: ASCORBIC ACID 500 MG TAB PO SCH (21:26)
[2017-12-29] MEDS: BENAZEPRIL HCL 10 MG TAB PO SCH (21:27)
[2017-12-30] VITALS (79 sets, daily range): BP systolic 115–179; BP diastolic 63–116
[2017-12-30] MEDS: IPRATROPIUM BROM 0.5 MG/2.5ML INH SOL NEB SCH ×6 (02:00→22:46)
[2017-12-30] MEDS: NICARDIPINE 25MG/250ML BAG KIT 250 ML IV SCH ×5 (03:17→23:17)
[2017-12-30 03:26] LABS: Basophils # (auto) 0 uL; Basophils % (auto) 0.1 % (0.0-2.0); Eosinophils # (auto) 0 uL; Eosinophils % (auto) 0.1 % (0.0-7.0); Hematocrit 25.4 % (41.0-53.0); Hemoglobin 8.5 g/dL (13.5-17.5); Lymphocytes # (auto) 1.6 uL; Lymphocytes % (auto) 8.2 % (10.0-50.0); Mean Corpuscular Hemoglobin 31.7 pg (28.0-32.0); Mean Corpuscular Hgb Conc. 33.5 g/dL (32.0-36.0); Mean Corpuscular Volume 94.7 fL (80.0-100.0); Monocytes # (auto) 1.3 uL; Monocytes % (auto) 6.8 % (0.0-12.0); Neutrophils # (auto) 16.1 uL; Neutrophils % (auto) 84.8 % (37.0-80.0); Platelet Count (auto) 226 10^3/uL (140-450); Red Blood Cells 2.69 10^6/uL (4.5-5.90); Red Cell Distribution Width 13.9 % (11.8-14.3)
[2017-12-30 03:41] LABS: BUN/Creatinine Ratio 34.5; Potassium 4.7 mmol/L (3.5-5.1)
[2017-12-30] MEDS: FUROSEMIDE 40 MG TAB PO SCH (06:16)
[2017-12-30] MEDS: INSULIN LANTUS (GLARGINE) 1 /0.01ml (100units/ml) SC SCH ×2 (06:19→22:00)
[2017-12-30] MEDS: ACCU-CHEK COMFORT CURVE STRIP VI SCH ×4 (06:20→22:00)
[2017-12-30] MEDS: SODIUM CHLORIDE 0.9% 1,000 ML IV SCH ×2 (06:20→14:00)
[2017-12-30] MEDS: InsuLIN REG 1unit/0.01ml Soln (100units/ml) SC SCH ×6 (06:20→22:00)
[2017-12-30] MEDS: ACETYLCYSTEINE 10 %(100MG/ML) SOL 4ML NEB SCH ×3 (07:02→22:46)
[2017-12-30] MEDS: PANTOPRAZOLE 40 MG/10 ML VIAL IV SCH (09:58)
[2017-12-30] MEDS: methylPREDNISolone SOD SUCC 125 MG/2 ML VL IV SCH (10:01)
[2017-12-30] MEDS: BENAZEPRIL HCL 10 MG TAB PO SCH (10:02)
[2017-12-30] MEDS: DOCUSATE SOD 100 MG CAP PO SCH ×3 (10:02→21:18)
[2017-12-30] MEDS: ASCORBIC ACID 500 MG TAB PO SCH ×2 (10:02→21:15)
[2017-12-30] MEDS: NITROGLYCERIN 0.4MG/HR TOPICAL PATCH TD SCH (10:03)
[2017-12-30] MEDS: CHLORHEXIDINE 0.12% ORAL rinse 473ML MT SCH ×2 (10:04→21:18)
[2017-12-30] MEDS: POTASSIUM CHL 10% (20 MEQ/15ML) 15ml ORAL SOLN PO SCH (10:04)
[2017-12-30] MEDS: Boost Glucose Control 8 Ounces PO SCH ×3 (10:05→18:00)
[2017-12-30] MEDS ORDERED: CALCIUM GLUC 4.65meq/50ml D5AE 50 ML IV ONE (10:30)
[2017-12-30] MEDS ORDERED: POTASSIUM CHL 20MEQ/100ML 100 ML IV PRN (11:00)
[2017-12-30] MEDS ORDERED: SENNA 8.6 MG TAB PO PRN (11:00)
[2017-12-30] MEDS ORDERED: glipiZIDE 5 MG TAB PO ONE (11:00)
[2017-12-30] MEDS ORDERED: DEXTROSE (50%) 50ML SYRG IV PRN (11:00)
[2017-12-30] MEDS ORDERED: HYDROcodone-ACET 7.5/325MG TAB PO PRN (11:00)
[2017-12-30] MEDS ORDERED: hydrALAZINE HCL 20 MG/ML VL IV PRN ×2 (11:00)
[2017-12-30] MEDS ORDERED: PANTOPRAZOLE 40 MG TAB PO ONE (11:00)
[2017-12-30] MEDS: NOREPINEPHRINE 8 MG/250ML KIT 250 ML IV SCH (12:17)
[2017-12-30] MEDS ORDERED: fentaNYL CITRATE 100 MCG/2 ML VL IV ONE (13:00)
[2017-12-30] MEDS ORDERED: ALBUMIN 25% 50 ML IV ONE (14:00)
[2017-12-30] MEDS: SODIUM CHLORIDE 0.9% 500 ML IV SCH (15:26)
[2017-12-30] MEDS: SODIUM FERR GLUC 62.5MG/5ML 125 MG in SODIUM CHL 0.9% 100 ML IV SCH (15:55)
[2017-12-30 16:07] LABS: BUN/Creatinine Ratio 36.5; Potassium 4.5 mmol/L (3.5-5.1)
[2017-12-30] MEDS: HYDROcodone-ACET 10/325MG TAB PO PRN (16:14)
[2017-12-30] MEDS ORDERED: SODIUM CHLORIDE 0.9% 500 ML IV ONE (17:15)
[2017-12-30 17:25] LABS: Calcium 8.5 mg/dL (8.5-10.1)
[2017-12-30] MEDS: AMIODARONE HCL 900 MG in DEXTROSE 500 ML IV SCH (18:30)
[2017-12-30] MEDS ORDERED: POTASSIUM CHL 20 Meq TABLET PO PRN (18:45)
[2017-12-30] MEDS ORDERED: MORPHINE SULF INJ 2 MG/ML SYRINGE 1ML IV PRN (18:45)
[2017-12-30] MEDS ORDERED: PRAV20TA3 PO (19:52)
[2017-12-30] MEDS ORDERED: METF-370 PO (19:52)
[2017-12-30] MEDS ORDERED: SITA100T7 PO (19:52)
[2017-12-30] MEDS: METOPROLOL TARTRATE 25 MG TAB PO SCH (21:16)
[2017-12-30] MEDS: ZOLPIDEM TARTRATE 5 MG TAB PO PRN (22:10)
[2017-12-31] VITALS (93 sets, daily range): BP systolic 111–173; BP diastolic 63–98
[2017-12-31] MEDS: IPRATROPIUM BROM 0.5 MG/2.5ML INH SOL NEB SCH ×6 (02:50→22:39)
[2017-12-31 04:09] LABS: Hematocrit 25.6 % (41.0-53.0); Hemoglobin 8.7 g/dL (13.5-17.5); Mean Corpuscular Hemoglobin 31.7 pg (28.0-32.0); Mean Corpuscular Hgb Conc. 33.8 g/dL (32.0-36.0); Mean Corpuscular Volume 93.7 fL (80.0-100.0); Platelet Count (auto) 261 10^3/uL (140-450); Red Blood Cells 2.73 10^6/uL (4.5-5.90); Red Cell Distribution Width 14.4 % (11.8-14.3); White Blood Cell 22.4 10^3/uL (4.4-10.8)
[2017-12-31] MEDS: NICARDIPINE 25MG/250ML BAG KIT 250 ML IV SCH ×4 (04:17→17:24)
[2017-12-31 04:28] LABS: Albumin 2.9 g/dL (3.4-5.0); Bilirubin, Total 0.4 mg/dL (0.2-1.0); Calcium 7.8 mg/dL (8.5-10.1); Magnesium 2.9 mg/dL (1.6-2.6); Total Protein 5.8 g/dL (6.4-8.2)
[2017-12-31 04:54] LABS: Basophils % (manual) 0 (0.0-2.0); Blast Cells 0; Eosinophils % (manual) 0 (0-7); Myelocytes % 0; Promyelocytes % 0; Reactive Lymphocytes 0
[2017-12-31] MEDS: ACETYLCYSTEINE 10 %(100MG/ML) SOL 4ML NEB SCH ×3 (06:00→22:39)
[2017-12-31 06:54] LABS: Band Neutrophils % (manual) 3; Lymphocytes % (manual) 11 (10.0-50.0); Metamyelocytes % 1; Monocytes % (manual) 6 (0-12)
[2017-12-31] MEDS: ACCU-CHEK COMFORT CURVE STRIP VI SCH ×4 (07:00→22:00)
[2017-12-31] MEDS ORDERED: glipiZIDE 5 MG TAB PO SCH (07:00)
[2017-12-31] MEDS: INSULIN LANTUS (GLARGINE) 1 /0.01ml (100units/ml) SC SCH ×3 (07:00→22:00)
[2017-12-31] MEDS: InsuLIN REG 1unit/0.01ml Soln (100units/ml) SC SCH ×5 (07:00→22:00)
[2017-12-31] MEDS: Boost Glucose Control 8 Ounces PO SCH ×3 (08:00→17:23)
[2017-12-31] MEDS: CHLORHEXIDINE 0.12% ORAL rinse 473ML MT SCH ×2 (09:47→22:00)
[2017-12-31] MEDS: SODIUM CHLORIDE 0.9% 1,000 ML IV SCH (09:48)
[2017-12-31] MEDS: DOCUSATE SOD 100 MG CAP PO SCH ×4 (09:48→22:00)
[2017-12-31] MEDS: ASPirin 81 mg TAB PO SCH (09:49)
[2017-12-31] MEDS: PANTOPRAZOLE 40 MG TAB PO SCH (09:50)
[2017-12-31] MEDS: FUROSEMIDE 40 MG TAB PO SCH (09:50)
[2017-12-31] MEDS: ASCORBIC ACID 500 MG TAB PO SCH ×2 (09:50→22:00)
[2017-12-31] MEDS: METOPROLOL TARTRATE 25 MG TAB PO SCH ×2 (09:50→22:00)
[2017-12-31] MEDS: NITROGLYCERIN 0.4MG/HR TOPICAL PATCH TD SCH (09:51)
[2017-12-31] MEDS ORDERED: POTASSIUM CHL 10% (20 MEQ/15ML) 15ml ORAL SOLN PO SCH ×2 (10:00)
[2017-12-31] MEDS: SODIUM FERR GLUC 62.5MG/5ML 125 MG in SODIUM CHL 0.9% 100 ML IV SCH (12:00)
[2017-12-31] MEDS: SODIUM CHLORIDE 0.9% 500 ML IV SCH (12:38)
[2017-12-31] MEDS: PIPERACILLIN-TAZO 4.5GM 100 ML IV SCH ×2 (14:00→22:00)
[2017-12-31] MEDS ORDERED: EPOETIN ALFA 4,000 UNIT/ML VL SC ONE (14:00)
[2017-12-31] MEDS: AMIODARONE HCL 900 MG in DEXTROSE 500 ML IV SCH (17:24)
[2017-12-31] MEDS: POTASSIUM CHL 20 Meq TABLET PO SCH (22:00)
[2017-12-31] MEDS: ZOLPIDEM TARTRATE 5 MG TAB PO PRN (22:47)
[2018-01-01] VITALS (39 sets, daily range): BP systolic 94–166; BP diastolic 58–100
[2018-01-01] MEDS: NICARDIPINE 25MG/250ML BAG KIT 250 ML IV SCH ×5 (00:17→20:17)
[2018-01-01] MEDS ORDERED: ACETAMINOPHEN 500 MG TAB PO ONE (05:00)
[2018-01-01] MEDS: PIPERACILLIN-TAZO 4.5GM 100 ML IV SCH ×3 (06:00→22:48)
[2018-01-01] MEDS: InsuLIN REG 1unit/0.01ml Soln (100units/ml) SC SCH ×4 (06:13→22:47)
[2018-01-01] MEDS: ACCU-CHEK COMFORT CURVE STRIP VI SCH ×4 (06:13→22:33)
[2018-01-01 06:33] LABS: Hematocrit 31.4 % (41.0-53.0); Hemoglobin 10.4 g/dL (13.5-17.5); Mean Corpuscular Hemoglobin 31.1 pg (28.0-32.0); Mean Corpuscular Hgb Conc. 33.2 g/dL (32.0-36.0); Mean Corpuscular Volume 93.8 fL (80.0-100.0); Platelet Count (auto) 334 10^3/uL (140-450); Red Blood Cells 3.35 10^6/uL (4.5-5.90); Red Cell Distribution Width 14.6 % (11.8-14.3); White Blood Cell 21.9 10^3/uL (4.4-10.8)
[2018-01-01 06:35] LABS: Basophils % (manual) 0 (0.0-2.0); Blast Cells 0; Metamyelocytes % 0; Myelocytes % 0; Promyelocytes % 0; Reactive Lymphocytes 0
[2018-01-01] MEDS ORDERED: glipiZIDE 5 MG TAB PO SCH (07:00)
[2018-01-01] MEDS: INSULIN LANTUS (GLARGINE) 1 /0.01ml (100units/ml) SC SCH ×2 (07:00→22:47)
[2018-01-01 07:18] LABS: Albumin 3.1 g/dL (3.4-5.0); BUN/Creatinine Ratio 34.6; Calcium 7.7 mg/dL (8.5-10.1); Magnesium 2.4 mg/dL (1.6-2.6)
[2018-01-01] MEDS: ACETYLCYSTEINE 10 %(100MG/ML) SOL 4ML NEB SCH ×3 (07:18→22:16)
[2018-01-01] MEDS: IPRATROPIUM BROM 0.5 MG/2.5ML INH SOL NEB SCH ×5 (07:18→22:16)
[2018-01-01 07:20] LABS: Bilirubin, Total 1.1 mg/dL (0.2-1.0); Total Protein 6.3 g/dL (6.4-8.2)
[2018-01-01 07:22] LABS: INR 1.05 (0.9-1.15); Partial Thromboplastin Time 23.8 sec (23.78-33.04); Prothrombin Time 11.2 sec (9.27-12.13)
[2018-01-01 07:26] LABS: Band Neutrophils % (manual) 1; Eosinophils % (manual) 1 (0-7); Lymphocytes % (manual) 14 (10.0-50.0); Monocytes % (manual) 15 (0-12)
[2018-01-01] MEDS ORDERED: glipiZIDE 5 MG TAB PO ONE (07:45)
[2018-01-01] MEDS ORDERED: MAGNESIUM SULFATE 1GM/100ML 100 ML IV ONE (08:00)
[2018-01-01] MEDS: DOCUSATE SOD 100 MG CAP PO SCH ×3 (10:00→22:42)
[2018-01-01] MEDS: NITROGLYCERIN 0.4MG/HR TOPICAL PATCH TD SCH ×3 (10:00→15:17)
[2018-01-01] MEDS: Boost Glucose Control 8 Ounces PO SCH ×3 (10:10→18:04)
[2018-01-01] MEDS: CHLORHEXIDINE 0.12% ORAL rinse 473ML MT SCH ×2 (10:10→22:49)
[2018-01-01] MEDS: PANTOPRAZOLE 40 MG TAB PO SCH (10:11)
[2018-01-01] MEDS: METOPROLOL TARTRATE 25 MG TAB PO SCH ×2 (10:11→22:46)
[2018-01-01] MEDS: ASCORBIC ACID 500 MG TAB PO SCH ×2 (10:12→22:43)
[2018-01-01] MEDS: POTASSIUM CHL 20 Meq TABLET PO SCH ×2 (10:13→22:42)
[2018-01-01] MEDS: ASPirin 81 mg TAB PO SCH (10:14)
[2018-01-01] MEDS: FUROSEMIDE 40 MG TAB PO SCH (10:14)
[2018-01-01] MEDS: SODIUM CHLORIDE 0.9% 500 ML IV SCH ×2 (12:17→15:30)
[2018-01-01] MEDS: SODIUM FERR GLUC 62.5MG/5ML 125 MG in SODIUM CHL 0.9% 100 ML IV SCH (12:45)
[2018-01-01] MEDS ORDERED: HYDROcodone-ACET 10/325MG TAB PO PRN (13:30)
[2018-01-01] MEDS ORDERED: HYDROcodone-ACET 7.5/325MG TAB PO PRN (13:30)
[2018-01-01] MEDS ORDERED: MORPHINE SULF INJ 2 MG/ML SYRINGE 1ML IV PRN (13:30)
[2018-01-01] MEDS ORDERED: fentaNYL CITRATE 100 MCG/2 ML VL IV PRN (15:30)
[2018-01-01] MEDS ORDERED: ENOXAPARIN SOD 40 MG/0.4 ML SYRINGE SC ONE (15:30)
[2018-01-01] MEDS ORDERED: ALBUMIN 25% 50 ML IV ONE (15:30)
[2018-01-01] MEDS ORDERED: ALPRAZolam 0.25 MG TAB PO PRN (15:30)
[2018-01-01] MEDS: hydrALAZINE HCL 10 MG TAB PO SCH (18:00)
[2018-01-01 18:24] LABS: Urine Bacteria FEW /hpf (None Seen); Urine Blood TRACE /uL (Negative); Urine Hyaline Cast FEW /lpf (0 - 2); Urine Mucus FEW (None Seen); Urine WBC <1 /hpf (0 - 3)
[2018-01-01] MEDS: AMIODARONE HCL 900 MG in DEXTROSE 500 ML IV SCH (18:30)
[2018-01-01] MEDS: HYDROcodone-ACET 5/325MG TAB PO PRN (22:43)
[2018-01-02] VITALS (16 sets, daily range): BP systolic 99–133; BP diastolic 66–90
[2018-01-02] MEDS: NICARDIPINE 25MG/250ML BAG KIT 250 ML IV SCH ×4 (00:38→16:17)
[2018-01-02 03:38] LABS: Hematocrit 28.7 % (41.0-53.0); Hemoglobin 9.6 g/dL (13.5-17.5); Mean Corpuscular Hemoglobin 31.4 pg (28.0-32.0); Mean Corpuscular Hgb Conc. 33.5 g/dL (32.0-36.0); Mean Corpuscular Volume 93.6 fL (80.0-100.0); Platelet Count (auto) 318 10^3/uL (140-450); Red Blood Cells 3.07 10^6/uL (4.5-5.90); Red Cell Distribution Width 14.6 % (11.8-14.3); White Blood Cell 18.1 10^3/uL (4.4-10.8)
[2018-01-02 03:42] LABS: Basophils % (manual) 0 (0.0-2.0); Blast Cells 0; Myelocytes % 0; Promyelocytes % 0; Reactive Lymphocytes 0
[2018-01-02 04:03] LABS: Albumin 3.1 g/dL (3.4-5.0); Bilirubin, Total 0.8 mg/dL (0.2-1.0); Magnesium 2.9 mg/dL (1.6-2.6); Potassium 4.1 mmol/L (3.5-5.1); Total Protein 6.2 g/dL (6.4-8.2)
[2018-01-02 04:26] LABS: Eosinophils % (manual) 1 (0-7); Lymphocytes % (manual) 13 (10.0-50.0); Metamyelocytes % 3
[2018-01-02 04:32] LABS: Band Neutrophils % (manual) 4; Monocytes % (manual) 5 (0-12)
[2018-01-02] MEDS: ACETYLCYSTEINE 10 %(100MG/ML) SOL 4ML NEB SCH ×3 (06:08→22:00)
[2018-01-02] MEDS: IPRATROPIUM BROM 0.5 MG/2.5ML INH SOL NEB SCH ×5 (06:08→22:00)
[2018-01-02] MEDS: FUROSEMIDE 40 MG TAB PO SCH ×2 (06:10→17:42)
[2018-01-02] MEDS: hydrALAZINE HCL 10 MG TAB PO SCH ×4 (06:10→17:42)
[2018-01-02] MEDS: PIPERACILLIN-TAZO 4.5GM 100 ML IV SCH ×3 (06:13→22:00)
[2018-01-02] MEDS: glipiZIDE 5 MG TAB PO SCH (06:17)
[2018-01-02] MEDS: ACCU-CHEK COMFORT CURVE STRIP VI SCH ×4 (06:18→21:21)
[2018-01-02] MEDS: InsuLIN REG 1unit/0.01ml Soln (100units/ml) SC SCH ×4 (06:18→22:00)
[2018-01-02] MEDS: INSULIN LANTUS (GLARGINE) 1 /0.01ml (100units/ml) SC SCH ×2 (06:18→22:00)
[2018-01-02] MEDS: THROAT LOZENGES(CEPASTAT) MT PRN (06:58)
[2018-01-02] MEDS ORDERED: ALBUMIN 25% 50 ML IV ONE (07:45)
[2018-01-02] MEDS ORDERED: metFORMIN HYDROCHLORIDE 500 MG TAB PO SCH (08:00)
[2018-01-02] MEDS: Boost Glucose Control 8 Ounces PO SCH ×3 (08:39→18:00)
[2018-01-02] MEDS: NITROGLYCERIN 0.4MG/HR TOPICAL PATCH TD SCH (09:59)
[2018-01-02] MEDS: ENOXAPARIN SOD 40 MG/0.4 ML SYRINGE SC SCH (09:59)
[2018-01-02] MEDS: ASPirin 81 mg TAB PO SCH (09:59)
[2018-01-02] MEDS: ASCORBIC ACID 500 MG TAB PO SCH ×2 (10:00→22:00)
[2018-01-02] MEDS: POTASSIUM CHL 20 Meq TABLET PO SCH ×2 (10:00→22:00)
[2018-01-02] MEDS: PANTOPRAZOLE 40 MG TAB PO SCH (10:00)
[2018-01-02] MEDS: METOPROLOL TARTRATE 25 MG TAB PO SCH ×3 (10:00→23:00)
[2018-01-02] MEDS: CHLORHEXIDINE 0.12% ORAL rinse 473ML MT SCH ×2 (10:01→22:00)
[2018-01-02] MEDS: KETOROLAC TROMETH 30 MG/ML 1ML VIAL IV PRN ×2 (10:27→17:42)
[2018-01-02] MEDS: DOCUSATE SOD 100 MG CAP PO SCH ×2 (10:33→22:00)
[2018-01-02] MEDS: SODIUM FERR GLUC 62.5MG/5ML 125 MG in SODIUM CHL 0.9% 100 ML IV SCH (12:45)
[2018-01-02] MEDS: SODIUM CHLORIDE 0.9% 500 ML IV SCH (15:30)
[2018-01-02] MEDS: HYDROcodone-ACET 5/325MG TAB PO PRN (17:42)
[2018-01-02] MEDS: AMIODARONE HCL 900 MG in DEXTROSE 500 ML IV SCH (17:43)
[2018-01-02] MEDS ORDERED: TAMSULOSIN HYDROCHLORIDE 0.4 MG CAP PO SCH (18:00)
[2018-01-02 21:32] LABS: Urine Bacteria FEW /hpf (None Seen); Urine Blood 1+ /uL (Negative); Urine WBC 1 /hpf (0 - 3)
[2018-01-03 04:00] VITALS: BP 136/99
[2018-01-03 05:59] LABS: Hematocrit 31.1 % (41.0-53.0); Hemoglobin 10.4 g/dL (13.5-17.5); Mean Corpuscular Hemoglobin 31.8 pg (28.0-32.0); Mean Corpuscular Hgb Conc. 33.4 g/dL (32.0-36.0); Mean Corpuscular Volume 95.2 fL (80.0-100.0); Platelet Count (auto) 358 10^3/uL (140-450); Red Blood Cells 3.27 10^6/uL (4.5-5.90); White Blood Cell 16.1 10^3/uL (4.4-10.8)
[2018-01-03 06:00] VITALS: BP 131/96
[2018-01-03] MEDS: PIPERACILLIN-TAZO 4.5GM 100 ML IV SCH (06:00)
[2018-01-03] MEDS: hydrALAZINE HCL 10 MG TAB PO SCH ×4 (06:00→18:39)
[2018-01-03] MEDS: IPRATROPIUM BROM 0.5 MG/2.5ML INH SOL NEB SCH ×4 (06:00→22:28)
[2018-01-03 06:01] LABS: Basophils % (manual) 0 (0.0-2.0); Blast Cells 0; Metamyelocytes % 0; Myelocytes % 0; Promyelocytes % 0; Reactive Lymphocytes 0
[2018-01-03] MEDS: ACETYLCYSTEINE 10 %(100MG/ML) SOL 4ML NEB SCH ×3 (06:02→22:28)
[2018-01-03 06:06] LABS: Calcium 8.4 mg/dL (8.5-10.1); Potassium 4.2 mmol/L (3.5-5.1)
[2018-01-03 06:08] LABS: BUN/Creatinine Ratio 20.5
[2018-01-03] MEDS: InsuLIN REG 1unit/0.01ml Soln (100units/ml) SC SCH ×4 (07:00→22:00)
[2018-01-03] MEDS: ACCU-CHEK COMFORT CURVE STRIP VI SCH ×4 (07:00→22:03)
[2018-01-03] MEDS: INSULIN LANTUS (GLARGINE) 1 /0.01ml (100units/ml) SC SCH ×2 (07:00→22:04)
[2018-01-03] MEDS: glipiZIDE 5 MG TAB PO SCH (07:00)
[2018-01-03 08:00] VITALS: BP 126/77
[2018-01-03] MEDS: Boost Glucose Control 8 Ounces PO SCH ×3 (08:00→18:38)
[2018-01-03 08:20] LABS: Band Neutrophils % (manual) 2; Eosinophils % (manual) 2 (0-7); Lymphocytes % (manual) 14 (10.0-50.0); Monocytes % (manual) 8 (0-12)
[2018-01-03] MEDS ORDERED: ALBUMIN 25% 50 ML IV ONE (09:30)
[2018-01-03] MEDS: POTASSIUM CHL 20 Meq TABLET PO SCH (10:00)
[2018-01-03] MEDS: ENOXAPARIN SOD 40 MG/0.4 ML SYRINGE SC SCH (10:46)
[2018-01-03] MEDS: PHENAZOPYRIDINE HCL 100 MG TAB PO SCH (10:47)
[2018-01-03] MEDS: DOCUSATE SOD 100 MG CAP PO SCH ×2 (10:49→21:59)
[2018-01-03] MEDS: PANTOPRAZOLE 40 MG TAB PO SCH (10:49)
[2018-01-03] MEDS: AMIODARONE HCL 200 MG TAB PO SCH (10:50)
[2018-01-03] MEDS: ASCORBIC ACID 500 MG TAB PO SCH (10:50)
[2018-01-03] MEDS: TAMSULOSIN HYDROCHLORIDE 0.4 MG CAP PO SCH ×2 (10:50→21:59)
[2018-01-03] MEDS: FINASTERIDE 5 MG TAB PO SCH (10:50)
[2018-01-03] MEDS: ASPirin 81 mg TAB PO SCH (10:50)
[2018-01-03] MEDS: METOPROLOL TARTRATE 25 MG TAB PO SCH ×3 (10:51→23:03)
[2018-01-03] MEDS: CHLORHEXIDINE 0.12% ORAL rinse 473ML MT SCH ×2 (10:52→21:59)
[2018-01-03] MEDS: THROAT LOZENGES(CEPASTAT) MT PRN (11:44)
[2018-01-03 12:00] VITALS: BP 98/51
[2018-01-03] MEDS: NITROGLYCERIN 0.4MG/HR TOPICAL PATCH TD SCH (12:16)
[2018-01-03] MEDS: SODIUM FERR GLUC 62.5MG/5ML 125 MG in SODIUM CHL 0.9% 100 ML IV SCH (12:32)
[2018-01-03] MEDS: SODIUM CHLORIDE 0.9% 500 ML IV SCH (15:30)
[2018-01-03 15:57] LABS: BUN/Creatinine Ratio 20.7; Calcium 8.3 mg/dL (8.5-10.1); Potassium 4.3 mmol/L (3.5-5.1)
[2018-01-03 16:00] VITALS: BP 127/70
[2018-01-03] MEDS ORDERED: DOCU100C8 PO (17:20)
[2018-01-03] MEDS ORDERED: ASPI81CH43 PO (17:20)
[2018-01-03] MEDS ORDERED: MET25T PO (17:20)
[2018-01-03] MEDS ORDERED: POTA20TA53 PO (17:20)
[2018-01-03] MEDS ORDERED: FURO40TA4 PO (17:20)
[2018-01-03] MEDS ORDERED: AMI200T PO (17:20)
[2018-01-03] MEDS ORDERED: GLIP-115 PO (17:20)
[2018-01-03] MEDS ORDERED: TAM04C PO (17:20)
[2018-01-03 20:00] VITALS: BP 119/62
[2018-01-04] MEDS: hydrALAZINE HCL 10 MG TAB PO SCH ×3 (00:04→12:00)
[2018-01-04 00:44] VITALS: BP 130/70
[2018-01-04] MEDS: IPRATROPIUM BROM 0.5 MG/2.5ML INH SOL NEB SCH ×3 (02:00→10:28)
[2018-01-04 04:00] VITALS: BP 106/66
[2018-01-04 05:35] LABS: Band Neutrophils % (manual) 0; Basophils % (manual) 0 (0.0-2.0); Blast Cells 0; Hematocrit 25.5 % (41.0-53.0); Hemoglobin 8.5 g/dL (13.5-17.5); Mean Corpuscular Hemoglobin 31.6 pg (28.0-32.0); Mean Corpuscular Hgb Conc. 33.4 g/dL (32.0-36.0); Mean Corpuscular Volume 94.7 fL (80.0-100.0); Metamyelocytes % 0; Myelocytes % 0; Platelet Count (auto) 316 10^3/uL (140-450); Promyelocytes % 0; Reactive Lymphocytes 0; Red Blood Cells 2.69 10^6/uL (4.5-5.90); Red Cell Distribution Width 14.9 % (11.8-14.3); White Blood Cell 12.3 10^3/uL (4.4-10.8)
[2018-01-04] MEDS: ACETYLCYSTEINE 10 %(100MG/ML) SOL 4ML NEB SCH (05:47)
[2018-01-04 05:58] LABS: Albumin 2.9 g/dL (3.4-5.0); BUN/Creatinine Ratio 18.8; Magnesium 2.3 mg/dL (1.6-2.6); Potassium 3.8 mmol/L (3.5-5.1)
[2018-01-04 06:01] LABS: Bilirubin, Total 0.9 mg/dL (0.2-1.0); Total Protein 5.8 g/dL (6.4-8.2)
[2018-01-04] MEDS: ACCU-CHEK COMFORT CURVE STRIP VI SCH ×3 (06:38→17:00)
[2018-01-04] MEDS: InsuLIN REG 1unit/0.01ml Soln (100units/ml) SC SCH ×3 (06:38→17:00)
[2018-01-04] MEDS: glipiZIDE 5 MG TAB PO SCH (06:38)
[2018-01-04] MEDS: INSULIN LANTUS (GLARGINE) 1 /0.01ml (100units/ml) SC SCH (06:39)
[2018-01-04 06:56] LABS: Eosinophils % (manual) 4 (0-7); Lymphocytes % (manual) 21 (10.0-50.0); Monocytes % (manual) 5 (0-12)
[2018-01-04 08:00] VITALS: BP 100/47
[2018-01-04] MEDS ORDERED: ALBUMIN 25% 50 ML IV ONE (08:00)
[2018-01-04] MEDS: FUROSEMIDE 40 MG TAB PO SCH ×2 (08:00→09:44)
[2018-01-04] MEDS: Boost Glucose Control 8 Ounces PO SCH ×2 (08:01→12:10)
[2018-01-04] MEDS: DOCUSATE SOD 100 MG CAP PO SCH (09:59)
[2018-01-04] MEDS: ASPirin 81 mg TAB PO SCH (09:59)
[2018-01-04] MEDS: TAMSULOSIN HYDROCHLORIDE 0.4 MG CAP PO SCH (09:59)
[2018-01-04] MEDS: FINASTERIDE 5 MG TAB PO SCH (09:59)
[2018-01-04] MEDS: PHENAZOPYRIDINE HCL 100 MG TAB PO SCH (09:59)
[2018-01-04] MEDS: PANTOPRAZOLE 40 MG TAB PO SCH (10:00)
[2018-01-04] MEDS ORDERED: POTASSIUM CHL 20 Meq TABLET PO SCH (10:00)
[2018-01-04] MEDS: AMIODARONE HCL 200 MG TAB PO SCH (10:00)
[2018-01-04] MEDS: ENOXAPARIN SOD 40 MG/0.4 ML SYRINGE SC SCH (10:01)
[2018-01-04] MEDS: CHLORHEXIDINE 0.12% ORAL rinse 473ML MT SCH (10:01)
[2018-01-04] MEDS: NITROGLYCERIN 0.4MG/HR TOPICAL PATCH TD SCH (10:03)
[2018-01-04] MEDS ORDERED: METOPROLOL TARTRATE 25 MG TAB PO SCH (10:30)
[2018-01-04 12:00] VITALS: BP 122/83
[2018-01-04] MEDS: SODIUM FERR GLUC 62.5MG/5ML 125 MG in SODIUM CHL 0.9% 100 ML IV SCH (12:41)
[2018-01-04] MEDS: HYDROcodone-ACET 5/325MG TAB PO PRN (13:24)
[2018-01-04 16:00] VITALS: BP 133/75
[2018-01-04 18:11] VITALS: BP 133/75
== END 2018-01-04 18:50 | disposition home or self-care (01) | DRG 233 ==
LOC: EDBD 11:52 → ER 11:52 → CATH 1 12:06 → ICU WEST 12:07 → OVERFLOW 12-24 14:00 → ICU WEST 12-24 14:01 → ICU CENTRL 01-02 11:18 → DOU IN ICU 01-02 11:23
PROVIDERS: ADMIT Internal Medicine Cardiovascular Disease; ATTEND Internal Medicine Cardiovascular Disease
PROC: B2111ZZ Fluoroscopy of Multiple Coronary Arteries using Low Osmolar Contrast (ICD-10-PCS; 2017-12-22)
PROC: 5A02210 Assistance with Cardiac Output using Balloon Pump, Continuous (ICD-10-PCS; 2017-12-22)
PROC: B2151ZZ Fluoroscopy of Left Heart using Low Osmolar Contrast (ICD-10-PCS; 2017-12-22)
PROC: 4A023N7 Measurement of Cardiac Sampling and Pressure, Left Heart, Percutaneous Approach (ICD-10-PCS; 2017-12-22)
PROC: 021309W Bypass Coronary Artery, Four or More Arteries from Aorta with Autologous Venous Tissue, Open Approach (ICD-10-PCS; 2017-12-24)
PROC: 5A1945Z Respiratory Ventilation, 24-96 Consecutive Hours (ICD-10-PCS; 2017-12-24)
PROC: 06BQ0ZZ Excision of Left Saphenous Vein, Open Approach (ICD-10-PCS; 2017-12-24)
PROC: 5A1221Z Performance of Cardiac Output, Continuous (ICD-10-PCS; 2017-12-24)
PROC: 02100Z9 Bypass Coronary Artery, One Artery from Left Internal Mammary, Open Approach (ICD-10-PCS; principal; 2017-12-24 11:47)
PROC: 30233N1 Transfusion of Nonautologous Red Blood Cells into Peripheral Vein, Percutaneous Approach (ICD-10-PCS; 2017-12-26)
PROC: 5A09357 Assistance with Respiratory Ventilation, Less than 24 Consecutive Hours, Continuous Positive Airway Pressure (ICD-10-PCS; 2017-12-28)
PROC: 5A09357 Assistance with Respiratory Ventilation, Less than 24 Consecutive Hours, Continuous Positive Airway Pressure (ICD-10-PCS; 2017-12-29)
PROC: 5A09357 Assistance with Respiratory Ventilation, Less than 24 Consecutive Hours, Continuous Positive Airway Pressure (ICD-10-PCS; 2017-12-30)
PROC: 5A09357 Assistance with Respiratory Ventilation, Less than 24 Consecutive Hours, Continuous Positive Airway Pressure (ICD-10-PCS; 2017-12-31)
DX: I21.19 ST elevation (STEMI) myocardial infarction involving other coronary artery of inferior wall (principal); J96.01 Acute respiratory failure with hypoxia; N17.9 Acute kidney failure, unspecified; J98.11 Atelectasis; I25.10 Atherosclerotic heart disease of native coronary artery without angina pectoris; E66.01 Morbid (severe) obesity due to excess calories; E11.9 Type 2 diabetes mellitus without complications; E66.9 Obesity, unspecified; I10 Essential (primary) hypertension; R33.8 Other retention of urine; E11.21 Type 2 diabetes mellitus with diabetic nephropathy; D64.9 Anemia, unspecified; T88.4XXA Failed or difficult intubation, initial encounter; K21.0 Gastro-esophageal reflux disease with esophagitis; E11.59 Type 2 diabetes mellitus with other circulatory complications; E11.40 Type 2 diabetes mellitus with diabetic neuropathy, unspecified; E78.5 Hyperlipidemia, unspecified; K21.9 Gastro-esophageal reflux disease without esophagitis; N40.1 Benign prostatic hyperplasia with lower urinary tract symptoms; Z82.49 Family history of ischemic heart disease and other diseases of the circulatory system; Z88.8 Allergy status to other drugs, medicaments and biological substances; Z68.39 Body mass index [BMI] 39.0-39.9, adult; Z71.3 Dietary counseling and surveillance
CPT/HCPCS: 36415; 36600; 71045; 76775; 80048; 80053; 80061; 81001; 82040; 82310; 82805; 82962; 83036; 83735; 83880; 84100; 84132; 84443; 84484; 85007; 85014; 85018; 85025; 85027; 85576; 85610; 85730; 86850; 86900; 86901; 86920; 87070; 87081; 87086; 87205; 93005; 93306; 93886; 93970; 94002; 94003; 94640; 94660; 94761; 96361; 96374; 96375; 97110; 97116; 97163; 97530; 99152; A4565; C1751; C1768; C1887; C9113; J0153; J0610; J1100; J1265; J1642; J1644; J1815; J1885; J2250; J2270; J2440; J2543; J2704; J3480; J7060; P9047

== ENCOUNTER → 2018-01-18 | Outpatient (CLI) | payer OTHER ==
[~2018-01-18] MED LIST: AMI200T PO; ASPI81CH43 PO; DOCU100C8 PO; DOXA1TAB41 PO; FURO40TA4 PO; GLIP-115 PO; MET25T PO; OME20T PO; POTA20TA53 PO; SITA100T7 PO; TAM04C PO
[2018-01-18 15:03] LABS: Basophils # (auto) 0.1 uL; Basophils % (auto) 0.9 % (0.0-2.0); Eosinophils # (auto) 0.2 uL; Eosinophils % (auto) 3.5 % (0.0-7.0); Hematocrit 31.8 % (41.0-53.0); Hemoglobin 10.6 g/dL (13.5-17.5); Lymphocytes # (auto) 1.3 uL; Lymphocytes % (auto) 20.4 % (10.0-50.0); Mean Corpuscular Hemoglobin 31.4 pg (28.0-32.0); Mean Corpuscular Hgb Conc. 33.3 g/dL (32.0-36.0); Mean Corpuscular Volume 94.5 fL (80.0-100.0); Monocytes # (auto) 0.6 uL; Monocytes % (auto) 8.6 % (0.0-12.0); Neutrophils # (auto) 4.3 uL; Neutrophils % (auto) 66.6 % (37.0-80.0); Platelet Count (auto) 352 10^3/uL (140-450); Red Blood Cells 3.37 10^6/uL (4.5-5.90); Red Cell Distribution Width 14.9 % (11.8-14.3); White Blood Cell 6.4 10^3/uL (4.4-10.8)
[2018-01-18 15:38] LABS: Albumin 3.2 g/dL (3.4-5.0); BUN/Creatinine Ratio 9.6; Bilirubin, Total 0.6 mg/dL (0.2-1.0); Calcium 8.9 mg/dL (8.5-10.1); Potassium 3.8 mmol/L (3.5-5.1); Total Protein 7.8 g/dL (6.4-8.2)
== END | disposition home or self-care (01) ==
LOC: LAB 14:38
PROVIDERS: ATTEND Thoracic Surgery (Cardiothoracic Vascular Surgery)
DX: I25.10 Atherosclerotic heart disease of native coronary artery without angina pectoris (principal); N17.9 Acute kidney failure, unspecified; I10 Essential (primary) hypertension; E78.5 Hyperlipidemia, unspecified; K21.9 Gastro-esophageal reflux disease without esophagitis; Z95.1 Presence of aortocoronary bypass graft
CPT/HCPCS: 36415; 80053; 85025

== ENCOUNTER → 2018-04-17 | Outpatient (CLI) | payer OTHER ==
[2018-04-17 09:13] LABS: Basophils # (auto) 0.1 uL; Basophils % (auto) 1.5 % (0.0-2.0); Eosinophils # (auto) 0.4 uL; Eosinophils % (auto) 6.6 % (0.0-7.0); Hematocrit 46.2 % (41.0-53.0); Lymphocytes # (auto) 1.6 uL; Mean Corpuscular Hemoglobin 29.4 pg (28.0-32.0); Mean Corpuscular Hgb Conc. 32.4 g/dL (32.0-36.0); Mean Corpuscular Volume 90.7 fL (80.0-100.0); Monocytes # (auto) 0.5 uL; Monocytes % (auto) 7.6 % (0.0-12.0); Neutrophils # (auto) 3.7 uL; Neutrophils % (auto) 59.3 % (37.0-80.0); Nucleated Red Blood Cells % 0.1 %; Platelet Count (auto) 205 10^3/uL (140-450); Red Cell Distribution Width 16.6 % (11.8-14.3); White Blood Cell 6.3 10^3/uL (4.4-10.8)
[2018-04-17 09:34] LABS: Cholesterol 243 mg/dL (< 200); HDL Cholesterol 55 mg/dL (40-59); LDL Cholesterol 165 mg/dL (< 100); Triglycerides 157 mg/dL (< 150)
[2018-04-17 09:39] LABS: Free T4 (Free Thyroxine) 1.15 ng/dL (0.89-1.76); Prostate Specific Antigen 1.29 ng/mL (0.0-4.0)
== END | disposition home or self-care (01) ==
LOC: LAB 08:37
PROVIDERS: ATTEND Internal Medicine
DX: N40.1 Benign prostatic hyperplasia with lower urinary tract symptoms (principal); E78.00 Pure hypercholesterolemia, unspecified; D64.9 Anemia, unspecified; R79.89 Other specified abnormal findings of blood chemistry
CPT/HCPCS: 36415; 80061; 83036; 84153; 84439; 84443; 85025

== ENCOUNTER → 2018-05-29 | Outpatient (CLI) | payer OTHER | END | disposition home or self-care (01) | LOC: LAB 10:22 | PROVIDERS: ATTEND Internal Medicine | DX: E11.9 Type 2 diabetes mellitus without complications (principal) | CPT/HCPCS: 82043 ==